=== PATIENT | female | born 1995 | race Caucasian/White ===

== ENCOUNTER → 2018-03-06 | Day surgery (SDC) | payer BC ==
[~2018-03-06] MED LIST: ALBUTEROL SULFATE 2.5 MG/3 ML NEBU. NEB PRN; ATROPINE 0.5 MG/5 ML DISP.SYRIN. IV PRN; ATROPINE SULFATE 1 MG VIAL ONE; HYDROcodone/APAP 5/325MG 1 TAB TABLET PO ONE; IV RINGERS SOLUTION,LACTATED 1,000 ML IV SCH; KETAMINE HCL 500 MG/10 ML VIAL. ONE; KETOROLAC 30 MG/ML VIAL. ONE; LIDOCAINE 2% PF Vial for OR 5 ML VIAL. ONE; MIDAZOLAM HCL PF 2 MG/2 ML VIAL. ONE; NALOXONE 0.4 MG/ML VIAL. IV PRN; ONDANSETRON PF 4 MG/2 ML VIAL. IV PRN; ONDANSETRON PF 4 MG/2 ML VIAL. ONE; PROCHLORPERAZINE 10 MG/2 ML VIAL. IV PRN; PROPOFOL 20 ML IV ONE; PROPOFOL 40 ML IV ONE
[2018-03-06 08:00] LABS: U PREG PATIENT NEGATIVE (NEG)
--- NOTE | 2018-03-06 11:33 | PDOC ---
BRIEF OPERATIVE NOTE Date: Mar 06, 2018 Pre-Op Diagnosis impacted 3rd molars Post-Op Diagnosis same Procedure Performed surgical extraction of 1, 16, 17, 32 Surgeon card Lead Injection Mold Technician Liz Fajardo Anesthesiologist Marilyn Anesthesia Type: General, MAC Blood Loss < 10ml IV Fluid 1000 Urine Output no fairchild Specimens Obtained none, teeth disposed of in OR Findings see dictation Complications none Additional Remarks see dictation CARDSUMEET DMD Mar 06, 2018 11:33
--- NOTE | 2018-03-06 11:36 | DISCH ---
DISCHARGE INSTRUCTIONS-DC Condition on Discharge Condition on Discharge: Stable Activity after Discharge Activity Instructions for Disc: No restrictions, Avoid exertion Diet after Discharge Diet after Discharge: Regular (no straws, soft food diet) Wound/Incision Care Wound/Incision Care: Ice to area for comfort Wound Care Equipment: Sutures/davin (sutures dissolve in 7-10 days) Contacting the DRRené after DC Call your doctor for: If your condition worsens SUMEET VILLATORO DMD Mar 06, 2018 11:36
[2018-03-06 12:11] VITALS: BP 129/72
--- NOTE | 2018-03-14 15:48 | OP ---
DATE OF SURGERY: 03/06/2018 OPERATING SERVICE: head of science. ATTENDING PHYSICIAN: Celestino Villatoro DMD, MD. BRIEF HISTORY: The patient was referred to our clinic for 3rd molar extraction. IV attempts were unsuccessful. She has had long history of difficult IV cannulation and has had a port placed, plan was to bring her to the surgery center for additional facilities to either use a port or to additional capacity in establishing an IV. This plan was discussed with the patient and her father and they were affable with our plan, permit was obtained and surgery was scheduled. ESTIMATED BLOOD LOSS: Less than 10 mL. DRAINS PLACED: None. SPECIMEN SENT: None. Teeth were disposed in the OR. COMPLICATIONS: None noted at the time of surgery. DESCRIPTION OF PROCEDURE: After the history and physical was updated in the preoperative holding area, the patient was transported by the Anesthesia Service to the operating suite, placed in the supine position. General anesthesia was induced. The airway was secured with a MAC and the patient was kept comfortable in this subconscious MAC/general anesthetic state for the duration of the procedure with intermittent boluses of propofol. Local anesthesia in the form of 0.5% Marcaine was administered with 1:200,000 epinephrine, a total of approximately 6 mL were administered. An additional 8 mL of 1% lidocaine with 1:100,000 epinephrine was administered as well in the third molar sites. Moist gauze, throat packs and pharyngeal curtains were employed throughout the procedure to protect the airway. Local maneuvers were employed to keep the airway open during surgery. Surgery began in the upper right hand and lower right hand quadrants with the 15 blade. A full thickness mucoperiosteal flap was elevated buccally with a periosteal elevator with a distal hockey stick. Tooth #1 was luxated, elevated and extracted. Distal portions of the maxillary tuberosity that were required to be removed during and after the extraction. No oral antral fistula was found. This site was lavaged and suctioned and sutured with multiple interrupted sutures. #32, a rotary handpiece was employed for dissection of the tooth and extracted without complication. The site was lavaged, curetted and suctioned. Doxycycline paste and then a small piece of Gelfoam was placed in the site and oversewn with 2 [id number] sutures. After this side, the gauze was changed and the bite block was switched sides and the surgery continued on the left upper and lower side, #16 and #17 were extracted in a similar fashion without complication. No rotary instrumentation was employed for #17 extraction. At the completion of the procedure, the oral cavity was lavaged and suctioned. Bleeding was hemostatic. Gauze packs were placed and the patient was returned to the care of anesthesia where she was allowed to spontaneously resume consciousness and was transported to the PACU in stable condition. CELESTINO VILLATORO DMD DR: Rajni JOB#: [id number] / [id number] SAMINA
== END | disposition home or self-care (01) ==
LOC: SURG 07:14
PROVIDERS: ATTEND Dentist Oral and Maxillofacial Surgery
DX: K01.1 Impacted teeth (principal); F31.9 Bipolar disorder, unspecified; K21.9 Gastro-esophageal reflux disease without esophagitis; G47.33 Obstructive sleep apnea (adult) (pediatric); E83.119 Hemochromatosis, unspecified; Z79.899 Other long term (current) drug therapy; Z98.890 Other specified postprocedural states
CPT/HCPCS: 41899; 81025; J0461; J0696; J1885; J2250; J2405; J2704; J3490; J7120; J2001